=== PATIENT | male | born 2000 | race Hispanic/Latino ===

== ENCOUNTER 2022-04-27 14:13 | Emergency (ER) | payer BC, SELFPAY ==
[2022-04-27 14:23] VITALS: BP 140/97; PULSE 65; RESP 18; TEMP 37.4; O2SAT 100
--- NOTE | 2022-04-27 14:30 | ED.MALEGU ---
HPI - Male Genitourinary General Chief complaint: Urogenital-Male Stated complaint: yeast infection Time Seen by Provider: 04/27/22 14:30 Source: patient Mode of arrival: ambulatory Limitations: no limitations History of Present Illness HPI Narrative: 22 yo M presents with concern for yeast infection. Pt states when he rubs the skin under his foreskin it flakes . denies pain, itching and drainage. He states his girlfriend recently had a yeast infection. Pt also states he has had bumps to head of penis for long time that he has never showed anyone because they do not bother him. All systems reviewed and negative except as noted above. Related Data Allergies Allergy/AdvReac Type Severity Reaction Status Date / Time No Known Allergies Allergy Verified 04/27/22 14:22 Review of Systems Review of Systems: CONSTITUTIONAL: Denies fever, chills, or sweats. EYES: Denies visual changes, redness, or discharge. ENT: Denies rhinorrhea, congestion, sore throat, or otalgia. CARDIOVASCULAR: Denies chest pain, palpitations, or edema. RESPIRATORY: Denies cough or dyspnea. GASTROINTESTINAL: Denies abdominal pain, nausea, vomiting, or diarrhea. GENITOURINARY: Denies dysuria or hematuria. SKIN: Denies rash or itching. Reports flaking, dry skin to foreskin MUSCULOSKELETAL: Denies back pain, joint pain, or myalgia. NEUROLOGIC: Denies headache, numbness, or weakness. PSYCHIATRIC: Denies anxiety or depression. All other systems reviewed are negative, except as documented in HPI. CONSTITUTIONAL: Denies fever, chills, or sweats. PMFSH Comments At time of signature, agree with nursing past medical, surgical, social and family history. There is no relevant family history pertinent to the presenting complaint. Exam Narrative: GENERAL: This is a well-nourished, well-developed patient, in no apparent distress. HEAD: normocephalic, atraumatic. EYES: PERRL. Sclera clear/white. Vision is grossly intact. EARS: External ears normal NOSE: External nose normal NECK: Neck supple, non-tender without lymphadenopathy, masses or thyromegaly. CARDIOVASCULAR: Regular rate and rhythm without murmurs, gallops, or rubs. RESPIRATORY: Clear to auscultation. Breath sounds equal bilaterally. No wheezes, rales, or rhonchi. SKIN: warm, Dry, intact with no suspicious lesions or rash, good texture and turgor. NEURO: awake, alert, and oriented to person, place and time. There were no obvious focal neurologic abnormalities. EXTREMITIES: No joint tenderness, effusion, or edema noted. Gentourinary: multiple pearly penile papules to head on penis. nontender. there is mild erythema and dry skin under foreskin. no drainage. Course Course Level of Care: Express Care Visit Vital Signs Vital signs: Vital Signs Temperature 37.4 C 04/27/22 14:23 Pulse Rate 65 04/27/22 14:23 Respiratory Rate 18 04/27/22 14:23 Blood Pressure 140/97 H 04/27/22 14:23 Pulse Oximetry 100 04/27/22 14:23 Oxygen Delivery Room Air 04/27/22 14:23 Temperature 37.4 C 04/27/22 14:23 Pulse Rate 65 04/27/22 14:23 Respiratory Rate 18 04/27/22 14:23 Blood Pressure 140/97 H 04/27/22 14:23 Pulse Oximetry 100 04/27/22 14:23 Oxygen Delivery Room Air 04/27/22 14:23 reviewed MDM - Male Genitourinary MDM Narrative Medical decision making narrative: Patient is aware of diagnosis, understands and agrees to treatment plan. Anticipatory guidance given. Patient agrees to follow-up as directed and is aware of reasons to seek care at the emergency department. Portions of this record may have been created with voice recognition software Discharge Plan Discharge Clinical Impression: Skin yeast infection, Pearly penile papules Patient Disposition: Home, Self-Care Condition: Stable Instructions: Skin Yeast Infection (ED) Additional Instructions: Apply cream as prescribed. Follow up with your doctor if symptoms not improving. Pearly penile papules
== END 2022-04-27 14:49 | disposition home or self-care (01) ==
PROVIDERS: Emergency Provider Nurse Practitioner Family
DX: B37.49 Other urogenital candidiasis (principal); N48.89 Other specified disorders of penis
CPT/HCPCS: 87491; 87591; 87661; 99213; G0463

== ENCOUNTER 2023-02-24 15:34 | Emergency (ER) | payer BC, SELFPAY ==
[2023-02-24 15:42] VITALS: BP 127/89; PULSE 67; RESP 16; TEMP 36.9; O2SAT 100
--- NOTE | 2023-02-24 15:53 | ED.GENADULT ---
HPI - General Adult General Chief complaint: Unspecified Stated complaint: work note, headache, not feeling well Time Seen by Provider: 02/24/23 15:58 Source: patient, RN notes reviewed and old records reviewed Mode of arrival: ambulatory Limitations: no limitations History of Present Illness HPI narrative: 23-year-old male presents to the [facility] requesting a work note. Patient states that he was just was not feeling well today, fatigue firm working a lot lately. Called in sick and was told he needed a work note. Patient has no signs or symptoms. Denies headache, cough, any symptoms Related Data Home Medications Medication Instructions Recorded Confirmed No Home Medications 02/24/23 02/24/23 Allergies Allergy/AdvReac Type Severity Reaction Status Date / Time No Known Allergies Allergy Verified 02/24/23 15:58 Review of Systems Review of Systems: All systems reviewed & are unremarkable except as noted in HPI and below Constitutional: Constitutional: Reports no additional constitutional complaints Eyes: Eyes: Reports no additional eye complaints ENT: Reports system reviewed and no additional complaints, except as documented Cardiovascular: Cardiovascular: Reports no additional cardiovascular complaints, Denies chest pain and Denies dyspnea Respiratory: Respiratory: Reports no additional respiratory complaints, Denies chest congestion, Denies cough and Denies dyspnea Gastrointestinal: Gastrointestinal: Reports no additional gastrointestinal complaints, Denies abdominal pain, Denies nausea and Denies vomiting Musculoskeletal: Musculoskeletal: Reports no additional musculoskeletal complaints Integumentary/Breasts: Skin/Breast: Reports system reviewed and no additional complaints, except as docu Neurologic: Reports system reviewed and no additional complaints, except as documented Psychiatric: Psychiatric: Reports no additional psychiatric complaints Allergic/Immunologic: Allergic/Immunologic: Reports no additional allergic/immunologic complaints PMFSH Comments At the time of my signature, I reviewed and agree with the nursing past medical, surgical, social, and family history. There is no relevant family history pertinent to the patient complaint. Exam Const: General: cooperative, healthy appearing, comfortable, no acute distress, well developed, alert and well nourished Nutritional Appearance: well nourished Orientation/consciousness: patient oriented x3 Limitations: no limitations HENMT: Head: normal to inspection Ears: hearing grossly normal bilaterally and external ears normal Face/Nose/Sinus: Normal external nose present, Normal nares present, Normal nasal mucous membranes and turbinates present, normal facial exam and face symmetric Face and sinus: normal facial exam and face symmetric Mouth: Yes Normal oral and palatal mucosa present, Yes lip normal and Yes moist mucous membranes Throat: posterior oropharynx normal and uvula midline Eyes: General: appearance normal, both eyes and all related structures Alignment and Position: alignment normal Periorbital: periorbital findings normal Pupils: Equal, round and reactive pupils present EOM: EOMs intact bilaterally Neck: Neck: normal visual inspection, full ROM, no lymphadenopathy and no meningeal signs Chest: Chest palpation & inspection: normal inspection of the chest Resp: Effort & Inspection: normal respiratory effort and able to speak in complete sentences Auscultation: clear to auscultation bilaterally, no crackles, no rales, no rhonchi and no wheezes Cardio: Rate: regular rate Rhythm: regular rhythm Back/Spine/Pelvis: Cervical Spine: cervical ROM normal Skin: General skin exam: normal color and no rashes or lesions noted Lesions: no lesions Rashes: no rashes Wounds: no wounds Neuro: General: patient oriented x3, gait normal, tone normal, moves all extremities and no meningeal signs Cranial nerves: Yes Equal, round and reactive pu
== END 2023-02-24 16:02 | disposition home or self-care (01) ==
PROVIDERS: Emergency Provider Nurse Practitioner
DX: R53.83 Other fatigue (principal)
CPT/HCPCS: 99211; G0463

== ENCOUNTER 2023-07-11 18:50 | Emergency (ER) | payer BC, SELFPAY ==
[2023-07-11 19:04] VITALS: BP 135/89; PULSE 62; RESP 16; TEMP 36.7; O2SAT 100
--- NOTE | 2023-07-11 19:16 | ED.EAR ---
HPI - Ear Problem General Chief complaint: Ear Stated complaint: clogged right ear Time Seen by Provider: 07/11/23 19:16 Source: patient Mode of arrival: ambulatory Limitations: no limitations History of Present Illness HPI Narrative: 23-year-old male presents with decreased hearing to right ear. Denies pain. States that right ear canal feels clogged. All systems reviewed and negative except as noted above. Related Data Allergies Allergy/AdvReac Type Severity Reaction Status Date / Time No Known Allergies Allergy Verified 07/11/23 19:09 Review of Systems Review of Systems: CONSTITUTIONAL: Denies fever, chills, or sweats. EYES: Denies visual changes, redness, or discharge. ENT: Denies rhinorrhea, congestion, sore throat . Reports clogged right ear canal with decreased hearing. CARDIOVASCULAR: Denies chest pain, palpitations, or edema. RESPIRATORY: Denies cough or dyspnea. GASTROINTESTINAL: Denies abdominal pain, nausea, vomiting, or diarrhea. GENITOURINARY: Denies dysuria or hematuria. SKIN: Denies rash or itching. MUSCULOSKELETAL: Denies back pain, joint pain, or myalgia. NEUROLOGIC: Denies headache, numbness, or weakness. PSYCHIATRIC: Denies anxiety or depression. All other systems reviewed are negative, except as documented in HPI. PMFSH Comments At time of signature, agree with nursing past medical, surgical, social and family history. There is no relevant family history pertinent to the presenting complaint. Exam Narrative: GENERAL: This is a well-nourished, well-developed patient, in no apparent distress. HEAD: normocephalic, atraumatic. EYES: PERRL. Sclera clear/white. Vision is grossly intact. EARS: External ears normal, Left auditory canals clear and without drainage. Right ear canal impacted with cerumen. Left TM normal. Unable to visualize right TM. Hearing grossly intact. NOSE: External nose normal NECK: Neck supple, non-tender without lymphadenopathy, masses or thyromegaly. CARDIOVASCULAR: Regular rate and rhythm without murmurs, gallops, or rubs. RESPIRATORY: Clear to auscultation. Breath sounds equal bilaterally. No wheezes, rales, or rhonchi. SKIN: warm, Dry, intact with no suspicious lesions or rash, good texture and turgor. NEURO: awake, alert, and oriented to person, place and time. There were no obvious focal neurologic abnormalities. EXTREMITIES: No joint tenderness, effusion, or edema noted. Course Course Level of Care: Express Care Visit Vital Signs Vital signs: Vital Signs Temperature 36.7 C 07/11/23 19:04 Pulse Rate 62 07/11/23 19:04 Respiratory Rate 16 07/11/23 19:04 Blood Pressure 135/89 07/11/23 19:04 Pulse Oximetry 100 07/11/23 19:04 Oxygen Delivery Room Air 07/11/23 19:04 Temperature 36.7 C 07/11/23 19:04 Pulse Rate 62 07/11/23 19:04 Respiratory Rate 16 07/11/23 19:04 Blood Pressure 135/89 07/11/23 19:04 Pulse Oximetry 100 07/11/23 19:04 Oxygen Delivery Room Air 07/11/23 19:04 Reviewed Procedures Ear Wax Removal Right Ear: Ear Wax Removal Date: 07/11/23 Ear Wax Removal Time: 19:20 Cerumenolytic Used: other ( warm water) Results: Re-examined: some cerumen remains TM Examination: other ( unable to visualize right TM.) Ear Canal Exam: atraumatic Patient Tolerated Procedure: well Complications: pain Technique: ear canal irrigated and ear canal curetted Medical Decision Making MDM Narrative Medical decision making narrative: Unable to completely remove cerumen from right ear canal. Will discharge with Debrox. Patient is aware of diagnosis, understands and agrees to treatment plan. Anticipatory guidance given. Patient agrees to follow-up as directed and is aware of reasons to seek care at the emergency department. Portions of this record may have been created with voice recognition software Vital Signs Vital Signs: Vital Signs
== END 2023-07-11 19:30 | disposition home or self-care (01) ==
PROVIDERS: Emergency Provider Nurse Practitioner Family
DX: H61.21 Impacted cerumen, right ear (principal)
CPT/HCPCS: 69210; 99213; G0463